=== PATIENT | female | born 1975 | race Caucasian/White ===

== ENCOUNTER 2023-11-25 09:39 | Outpatient (CLI) | payer MEDICAID, OTHER | END 2023-11-25 20:17 | disposition home or self-care (01) | LOC: SMA 09:39 | PROVIDERS: ATTEND Student in an Organized Health Care Education/Training Program | DX: Z12.31 Encounter for screening mammogram for malignant neoplasm of breast (principal); N64.89 Other specified disorders of breast | CPT/HCPCS: 77067 ==